=== PATIENT | female | born 2000 | race Caucasian/White ===

== ENCOUNTER 2023-02-23 19:45 | Emergency (ER) | payer OTHER, SELFPAY ==
[2023-02-23 20:01] VITALS: BP 152/78; PULSE 122; RESP 16; TEMP 36.5; O2SAT 98; BMI 33.8
--- NOTE | 2023-02-23 20:10 | ED.FEMALEGU1 ---
HPI - Female Genitourinary General Chief complaint: Urogenital-Female Stated complaint: medical devices removed Time Seen by Provider: 02/23/23 20:02 Source: patient Mode of arrival: walk-in Limitations: no limitations History of Present Illness HPI Narrative: history of bartholin's cyst . Seen today earlier and the cyst was drained. Has a drain tube placed. States at first it was draining and now very little. She is experiencing pain from the cyst. No fever, nausea or abdominal pain Related Data Home Medications Medication Instructions Recorded Confirmed cephalexin 500 mg capsule 500 mg PO Q8H 02/23/23 02/23/23 sulfamethoxazole 800 1 tab PO BID 02/23/23 02/23/23 mg-trimethoprim 160 mg tablet (Bactrim DS) Allergies Allergy/AdvReac Type Severity Reaction Status Date / Time PCN Allergy Uncoded 02/23/23 20:06 Review of Systems ROS Status of ROS 10 or more systems reviewed and unremarkable except as noted in history and below PFS PFS Social History Smoking status: Never smoker Exam Constitutional Vital Signs, click to edit/add: Last Vital Signs Temp 97.7 F 02/23/23 20:01 Pulse 122 H 02/23/23 20:01 Resp 16 02/23/23 20:01 BP 152/78 H 02/23/23 20:01 Pulse Ox 98 02/23/23 20:01 O2 Del Method Room Air 02/23/23 20:01 Common normals: no apparent distress, average body habitus, oriented x3, no limitations, healthy appearing and alert [facility] Common normals: normocephalic and head/scalp atraumatic Eye Common normals: EOMs intact bilaterally and conjunctivae normal Respiratory Common normals: normal respiratory effort, no retractions, no use of accessory muscles and clear to auscultation bilaterally Cardio Common normals: regular rate, regular rhythm, S1 normal heart sound and S2 normal heart sound GI Common normals: Normal to inspection, nondistended, normoactive bowel sounds present, soft to palpation and non-tender Other: drained noted left bartholins cyst. minimal to no drainage from the tube Extremity Common normals: normal to inspection and full ROM Neuro Common normals: oriented x3, CN's II-XII intact bilaterally and moves all extremities Psych Appearance: grossly normal Course Vital Signs Vital signs: Vital Signs Temperature 97.7 F 02/23/23 20:01 Pulse Rate 122 H 02/23/23 20:01 Respiratory Rate 16 02/23/23 20:01 Blood Pressure 152/78 H 02/23/23 20:01 Pulse Oximetry 98 02/23/23 20:01 Oxygen Delivery Method Room Air 02/23/23 20:01 Temperature 97.7 F 02/23/23 20:01 Pulse Rate 122 H 02/23/23 20:01 Respiratory Rate 16 02/23/23 20:01 Blood Pressure 152/78 H 02/23/23 20:01 Pulse Oximetry 98 02/23/23 20:01 Oxygen Delivery Method Room Air 02/23/23 20:01 MDM - Female Genitourinary MDM Narrative Medical decision making narrative: patient has I and D left bartholins cyst today and drained placed. complains of pain from the drain. tube identified and minimal drainage at this time. tube removed. No complications. Patient is now feeling better Discharge Plan Discharge Chief Complaint: Urogenital-Female Clinical Impression: Cyst of Bartholin's gland duct Patient Disposition: Home, Self-Care Prescriptions / Home Meds: No Action cephalexin 500 mg capsule 500 mg PO Q8H sulfamethoxazole-trimethoprim [Bactrim DS] 800-160 mg tablet 1 tab PO BID Instructions: Bartholin Cyst (ED) Stand Alone Forms: Portal Instructions Referrals: NEDRA HERNÁNDEZ [Primary Care Provider] - 1 week Procedures ED Procedure Instructions Procedures Procedures: bartholin cyst drain tube removed. No complications
--- NOTE | 2023-02-23 20:49 | PC.NURSE ---
Patient has catheter in place to left vaginal area from removal of Bartholen cyst today, complains of pain from catheter.
--- NOTE | 2023-02-23 20:50 | PC.NURSE ---
Drain removed by Dr. Broderick, patient reports relief after catheter removal.
== END 2023-02-23 21:07 | disposition home or self-care (01) ==
PROVIDERS: Emergency Provider Internal Medicine; PCP Family Medicine
DX: N75.0 Cyst of Bartholin's gland (principal); Z79.899 Other long term (current) drug therapy
CPT/HCPCS: 99284